=== PATIENT | male | born 1985 | race American Indian/Alaskan Native ===

== ENCOUNTER 2021-03-01 08:37 | Day surgery (SDC) | payer OTHER ==
[~2021-03-01 08:37] MED LIST: ceFAZolin/STERILE WATER 2 GM/20 ML SYRINGE IV NR; metroNIDAZOLE/NS 500 MG/100 ML 500 MG/100 ML BAG IV NR
[2021-03-01] MEDS ORDERED: LACTATED RINGERS 1,000 ML IV SCH (09:00)
--- NOTE | 2021-03-01 09:41 | Anesthesia Consultation ---
Anesthesia Consult and Med Hx Date of service: 03/01/21 - Airway Anesthetic Teeth Evaluation: Good ROM Head & Neck: Adequate Mental/Hyoid Distance: Adequate Mallampati Class: Class II Intubation Access Assessment: Good - Pulmonary Exam CTA: Yes - Cardiac Exam Cardiac Exam: RRR - Pre-Operative Health Status ASA Pre-Surgery Classification: ASA1 Proposed Anesthetic Plan: General - Pulmonary Hx Smoking: No Hx Sleep Apnea: No (JUAN PRE SCREEN LOW RISK) - Cardiovascular System Hx Hypertension: No - Central Nervous System Hx Psychiatric Problems: No - Hematic Hx Anemia: No - Other Systems Hx Cancer: No
--- NOTE | 2021-03-01 09:41 | Anesthesia Day of Surgery ---
Anesthesia Day of Surgery - Day of Surgery Patient Examined: Yes Patient H&P Reviewed: Yes Patient is NPO: Yes
[2021-03-01] MEDS ORDERED: MIDAZOLAM 2 MG/2 ML INJ IV NR (10:00)
[2021-03-01] MEDS ORDERED: ONDANSETRON 4 MG/2 ML INJ ONE (11:46)
[2021-03-01] MEDS ORDERED: LIDOCAINE MPF (2%) 20 MG/1 ML VIAL 5 ML ONE (11:46)
[2021-03-01] MEDS ORDERED: HYDROmorphone 1 MG/1 ML INJ ONE (11:47)
[2021-03-01] MEDS ORDERED: propofoL 200 MG/20 ML VIAL IV ONE (11:47)
[2021-03-01] MEDS ORDERED: SODIUM CHLORIDE 0.9% IRR 1,500 ML BOTTLE IR ONE (12:30)
--- NOTE | 2021-03-01 12:46 | Short Stay Summary ---
Short Stay Documentation Date of service: 03/01/21 - History H&P: obtained from office - Allergies and Medications Current Medications: Allergies No Known Allergies Allergy (Verified 02/22/21 14:45) Home Medications Medication Instructions Recorded Confirmed Last Taken Type No Known Home Medications [No 02/22/21 02/22/21 Unknown History Reported Home Medications] Active Medications Cefazolin Sodium (Cefazolin/Sterile Water 2 Gm/20 Ml Syringe) 2 gm IV PREOP NR Stop: 03/01/21 20:00 Metronidazole (Flagyl 500 Mg/100 Ml) 500 mg in 100 mls @ 200 mls/hr IV PREOP NR; Protocol Stop: 03/01/21 20:00 Lactated Ringer's (Lactated Ringers) 1,000 mls @ 100 mls/hr IV DIRECT REID Last Admin: 03/01/21 09:40 Dose: 100 mls/hr Documented by: Midazolam HCl (Midazolam 2 Mg/2 Ml Inj) 2 mg IV PREOP NR Stop: 03/01/21 23:59 - Brief post op/procedure progress note Date of procedure: 03/01/21 Pre-op diagnosis: phimosis Post-op diagnosis: same Procedure: circ Anesthesia: GETA Surgeon: TULIO JOYNER Estimated blood loss: minimal Pathology: list (foreskin) Specimen disposition: to lab Condition: stable - Hospital course Hospital course: bianca on chart - Disposition Condition at discharge: Stable Disposition: DC-01 TO HOME OR SELFCARE Short Stay Discharge Plan Follow up with: PRIMARY CARE, [Primary Care Provider] - 7 Days
--- NOTE | 2021-03-01 14:04 | Operative Report ---
DATE OF SURGERY: 03/01/2021 PREOPERATIVE DIAGNOSIS: Phimosis. POSTOPERATIVE DIAGNOSIS: Phimosis. PROCEDURE: Circumcision. SURGEON: Aron Harris MD ANESTHESIA: General. ESTIMATED BLOOD LOSS: Minimal. FLUIDS: Crystalloid. COMPLICATIONS: No complications. INDICATIONS: This patient is a 36-year-old gentleman seen in the office for cracking up and tight foreskin. On exam, he failed conservative therapy, presents now for circumcision. DESCRIPTION OF PROCEDURE: The patient was taken to the operative suite, placed in a supine position. After adequate general anesthesia, foreskin was marked at the level of the coronal ridge. Foreskin was circumferentially removed and sent for routine pathologic evaluation. Shaft skin was retracted proximally. Adequate hemostasis was achieved. Proximal and distal shaft skin was reapproximated and closed with 2-0 chromic in interrupted fashion. Xeroform gauze, Jaycee and Coban dressing was placed. The patient tolerated the procedure well and was extubated and taken to recovery room. He will go home on [place] and follow up in the office. TID: [id number] RECEIPT: [id number] RAJ/DAVONTE
[2021-03-01 15:01] VITALS: BP 119/71
--- NOTE | 2021-03-01 16:59 | Post Anesthesia Evaluation ---
- Post Anesthesia Evaluation Patient Participated: Yes Airway Patent: Yes Stable Respiratory Function: Yes Nausea/Vomiting: No Temp > 96.8F: Yes Pain Manageable: Yes Adequeate Hydration: Yes Anesthesia Complications: No Block Receding Appropriately: Not Applicable Patient on Ventilator: No
== END 2021-03-01 14:20 | disposition home or self-care (01) ==
LOC: OR 08:37
PROVIDERS: ATTEND Urology
DX: N47.1 Phimosis (principal); Z79.899 Other long term (current) drug therapy; Z98.890 Other specified postprocedural states
CPT/HCPCS: 54161; 88304; J0690; J1170; J2250; J2405; J2704; J7120